=== PATIENT | female | born 1965 | race Caucasian/White ===

== ENCOUNTER 2016-08-15 09:34 | Emergency (ER) | payer MEDICAID ==
[~2016-08-15] VITALS: Ht 154.9 cm; Wt 62.0 kg
[2016-08-15 09:37] VITALS: Ht 154.9 cm; Wt 62.0 kg
[2016-08-15] MEDS ORDERED: NPH10OT LEFT EAR (09:55)
--- NOTE | 2016-08-15 13:58 | ERA ---
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 Patient complains of a left earache starting yesterday. Patient says that the pain is worse when the ear is moved. Patient has not done anything at this time to relieve the pain. Patient rates the pain as a 7 out of 10. Patient denies any discharge, fever, headache, dizziness, decreased hearing, tinnitus, change in taste or difficulty moving extremities/face. ROS All systems reviewed and are negative except as per history of present illness. Medications Home Meds Active Scripts Neomycin/Polymyxin/Hydrocort* (Cortisporin* Otic) 10 Ml Susp, 4 DROP LEFT EAR QID for 7 Days, EA Prov:ALBERT MEDINA PA-C 08/15/16 Allergies Allergies: Coded Allergies: No Known Allergy (Unverified , 08/15/16) PMhx/Soc Medical and Surgical Hx: pt denies Medical Hx, pt denies Surgical Hx Hx Alcohol Use: No Hx Substance Use: No Hx Tobacco Use: No Smoking Status: Never smoker Physical Exam Vitals Vital Signs Date Time Temp Pulse Resp B/P Pulse Ox O2 Delivery O2 Flow Rate FiO2 08/15/16 09:37 99.4 99 18 141/76 97 Physical Exam Const: Well-appearing 51-year-old female in no acute distress. Head: Atraumatic Eyes: Normal Conjunctiva ENT: Normal Nose and Mouth. Patient's left ear was positive for serous yellow fluid with an intact tympanic membrane that was erythematous. The external auditory canal was erythematous and edematous. Neck: Full range of motion..~ No meningismus. Resp: Clear to auscultation bilaterally Cardio: Regular rate and rhythm, no murmurs Abd: Soft, non tender, non distended. Normal bowel sounds Skin: No petechiae or rashes Back: No midline or flank tenderness Ext: No cyanosis, or edema Neur: Awake and alert Psych: Normal Mood and Affect Procedures/MDM Patient is a 51-year-old female who is complaining of left sided ear pain. Patient has never had symptoms like this before and has not taken any medication to relieve the symptoms. Upon physical examination the ear was tender with movement, there is visible yellow serous discharge in the ear canal and an intact tympanic membrane. The ear canal is erythematous. This time most likely diagnosis is otitis externa. Patient does not have diabetes and no tenderness around the posterior ear. Departure Diagnosis: Primary Impression: External otitis of left ear Condition: Stable Patient Instructions: External Ear Infection (Adult) Additional Instructions: Return to emergency department if symptoms worsen. Follow-up with your primary care practitioner in 1-3 days. ALBERT MEDINA PA-C Aug 15, 2016 13:12
== END 2016-08-15 10:14 | disposition home or self-care (01) ==
LOC: FTE 09:34
DX: H60.92 Unspecified otitis externa, left ear (principal)
CPT/HCPCS: 99283

== ENCOUNTER 2016-11-10 19:37 | Emergency (ER) | payer MEDICAID ==
[~2016-11-10] VITALS: Ht 157.5 cm; Wt 62.0 kg
[~2016-11-10 19:37] MED LIST: NPH10OT LEFT EAR
[2016-11-10 19:42] VITALS: Ht 157.5 cm; Wt 62.0 kg
[2016-11-10] MEDS ORDERED: ACETAMINOPHEN 325 MG TAB PO ONE (21:00)
--- NOTE | 2016-11-10 21:42 | RADRPT ---
PROCEDURE: XR Left Foot. CLINICAL INDICATION: Trauma. Left foot pain. TECHNIQUE: Three views. Frontal, lateral, and oblique. COMPARISON: None. FINDINGS: There is an acute oblique fracture through the distal shaft of the fourth metatarsal with mild media l displacement. There is no other fracture and there is no dislocation. The soft tissues are normal. Articular surfaces are intact. There is no lytic or blastic lesion. There is no radiopaque foreign body. IMPRESSION: 1. Acute oblique fracture through the distal shaft of the fourth metatarsal with mild medial displa cement. 2. Otherwise unremarkable images of the left foot. RPTAT: QQ .Adam Rowe MD, MD Date Time Electronically viewed and signed by .Adam Rowe MD, on 11/10/2016 21:42 .R/
--- NOTE | 2016-11-10 21:43 | RADRPT ---
PROCEDURE: XR Left Ankle. CLINICAL INDICATION: Left ankle pain. TECHNIQUE: 3 views. Frontal, lateral, and oblique. COMPARISON: None. FINDINGS: There is an acute oblique fracture through the distal shaft of the fourth metatarsal with mild media l displacement. There is no other fracture and there is no dislocation. The soft tissues are normal. Articular surfaces are intact. There is no lytic or blastic lesion. There is no radiopaque foreign body. IMPRESSION: 1. Acute oblique fracture through the distal shaft of the fourth metatarsal with mild medial displa cement. 2. Otherwise unremarkable images of the left ankle. RPTAT: QQ .Adam Rowe MD, MD Date Time Electronically viewed and signed by .Adam Rowe MD, on 11/10/2016 21:43 .R/
[2016-11-10] MEDS ORDERED: HYDR-906 PO (21:52)
--- NOTE | 2016-11-10 22:13 | ERD ---
ER Documentation Chief Complaint Date/Time DATE: 11/10/16 TIME: 22:10 Chief Complaint LEFT FOOT PAIN, STATES SHE SLIPPED AND HIT FOOT AGAINST ROCK HPI Patient is a 51-year-old female with no past medical history who presents to the ED with left foot pain after sustaining an injury 4 days ago. [place] her foot against a rock. She states that she has difficulty ambulating. Denies fever or chills. Denies radiation of pain. States that her foot is bruised and slightly swollen. She is not taking any medication for her symptoms. Shortness of breath or difficulty breathing. No other complaints. ROS All systems reviewed and are negative except as per history of present illness. Medications Home Meds Active Scripts Hydrocodone/Acetaminophen ([place] 5-325 Tablet) 1 Each Tablet, 1 TAB PO Q6H Y for PAIN, #7 TAB Prov:TIMO APONTE PA-C 11/10/16 Neomycin/Polymyxin/Hydrocort* (Cortisporin* Otic) 10 Ml Susp, 4 DROP LEFT EAR QID for 7 Days, EA Prov:ALBERT MEDINA PA-C 08/15/16 Allergies Allergies: Coded Allergies: No Known Allergy (Unverified , 08/15/16) PMhx/Soc History of Surgery: No Anesthesia Reaction: No Hx Neurological Disorder: No Hx Respiratory Disorders: No Hx Cardiac Disorders: No Hx Psychiatric Problems: No Hx Miscellaneous Medical Probl: No Hx Alcohol Use: No Hx Substance Use: No Hx Tobacco Use: No Smoking Status: Never smoker FmHx Family History: No coronary disease, No diabetes, No other Physical Exam Vitals Vital Signs Date Time Temp Pulse Resp B/P Pulse Ox O2 Delivery O2 Flow Rate FiO2 11/10/16 19:42 97.6 95 18 139/87 95 Physical Exam GENERAL: Well-developed, well-nourished female. Appears in no acute distress. HEAD: Normocephalic, atraumatic. EYES: Pupils are equally reactive bilaterally. EOMs grossly intact. No conjunctival erythema. ENT: Moist mucous membranes. No uvula deviation. No kissing tonsils. No exudates. NECK: Supple. No lymphadenopathy or thyromegaly. No meningismus. negative kernig. negative brudinski. LUNG: Clear to auscultation bilaterally. No rhonchi, wheezing, rales or coarse breath sounds. HEART: Regular rate and rhythm. No murmurs, rubs or gallops. Extremities: Equal pulses bilaterally. No peripheral clubbing, cyanosis or edema. No unilateral leg swelling. Tenderness to dorsal of the left foot with echymosis. No open wounds, deformities or step offs. No laceration. No signs of infection. Pulses intact bilaterally. tenderness to the fourth metatarsal. Sensation intact bilaterally. Negative [place] sign. dorsiflexion, extension, inversion and eversion intact bilaterally. NEUROLOGIC: Alert and oriented. Moving all four extremities. 5/5 strength in all extremities. Normal speech. unSteady gait. SKIN: Normal color. Warm and dry. No rashes or lesions. Capillary refill < 2 seconds Results 24 hrs Current Medications Medications (Trade) Dose Ordered Sig/Alan Route PRN Reason Start Time Stop Time Status Last Admin Dose Admin Acetaminophen (Tylenol Tab) 650 mg ONCE ONCE PO 11/10/16 21:00 11/10/16 21:01 DC 11/10/16 21:34 Procedures/MDM ER COURSE: I kept the patient and/or family informed of laboratory and diagnostic imaging results throughout the emergency room course. IMAGING STUDIES [place] [id number] Radiology Main Line: [phone] DIAGNOSTIC IMAGING REPORT Patient: MICHELET AVALOS : 1965 Age: 51 Sex: F MR #: [id number] DOS: 11/10/162049 Ordering MD: TIMO APONTE PA-C Location: [facility] Room/Bed: PROCEDURE: XR Left Foot. CLINICAL INDICATION: Trauma. Left foot pain. TECHNIQUE: Three views. Frontal, lateral, and oblique. COMPARISON: None. FINDINGS: There is an acute oblique fracture through the distal shaft of the fourth metatarsal with mild medial displacement. There is no other fracture and there is no dislocation. The soft tissues are normal. Articular surfaces are intact. There is no lytic or blastic lesion. There is no radiopaque foreign body. IMPRESSION: 1. Acute oblique fracture through the distal shaft of the fourth metatarsal with mild medial displacement. 2. Otherwise unremarkable images of the left foot. RPTAT: QQ .Adam Rowe MD, MD Date Time Electronically viewed and signed by .Adam Rowe MD, MD on 11/10/2016 21:42 .R/ CC: TIMO APONTE PA-C MEDICAL DECISION MAKING: This is a 51-year-old female who presents with left foot pain after sustaining an injury 4 days ago where she hit her foot against a rock. Vital signs were reviewed. Patient is afebrile. Patient is not hypoxic. Patient is nontoxic or ill-appearing. Patient's x-ray shows a acute oblique fracture through the distal shaft of the fourth metatarsal with mild medial displacement. Patient was given a posterior short leg splint. Neurovascular intact post placement. Low suspicion for dislocation, septic joint, compartment syndrome, osteomyelitis, cellulitis, avascular necrosis, neurological injury, vascular injury, tendon laceration. DISCHARGE: At this time, patient is stable for discharge and outpatient management with no new complaints during the ER course. Patient was sent home with copy of imaging report and [place] for pain and to follow-up with orthopedics. Patient will be discharged home with instructions to recheck for new or worsening symptoms such as fever, nausea, weakness, LOC and to follow up with primary care in the next 1 -2 days. Patient was advised to return to the ER for any new or worsening symptoms. Plan was discussed and patient and/or family understands and agrees. Home instructions were given. Departure Diagnosis: Primary Impression: Metatarsal bone fracture Encounter type: initial encounter Metatarsal bone: fourth Fracture type: closed Fracture alignment: displaced Laterality: left Qualified Code: S92.342A - Closed displaced fracture of fourth metatarsal bone of left foot, initial encounter Condition: Stable Patient Instructions: Fracture, Foot Referrals: [facility] 7 a.m.- 11 p.m. Every Day of the Week NO APPOINTMENT OR AUTHORIZATION NEEDED Additional Instructions: Llame al doctor MAANA y suleman maryan MARIEL PARA DENTRO DE 1-2 SALDIVAR.Dgale a la secretaria que nosotros le instruimos hacer esta mariel.Avise o llame si nolasco condicin se empeora antes de la mariel. Regresa aqui si peor o no mejor. TIMO APONTE PA-C Nov 10, 2016 22:13
[2016-11-10 22:44] VITALS: BP 137/85; RESP 20; TEMP 98
== END 2016-11-10 22:44 | disposition home or self-care (01) ==
LOC: FTE 19:37
DX: S92.342A Displaced fracture of fourth metatarsal bone, left foot, initial encounter for closed fracture (principal); W22.8XXA Striking against or struck by other objects, initial encounter; Y92.832 Beach as the place of occurrence of the external cause
CPT/HCPCS: 29515; 73610; 73630; Z7502

== ENCOUNTER 2016-12-24 11:31 | Emergency (ER) | payer MEDICAID ==
[~2016-12-24] VITALS: Ht 160 cm; Wt 61.0 kg
[~2016-12-24 11:31] MED LIST changes: +HYDR-906 PO
[2016-12-24 11:37] VITALS: Ht 160 cm; Wt 61.0 kg
[2016-12-24 12:31] LABS: BASOPHILS % 0.5 % (0.0-2.0); EOSINOPHILS # 0.1 10^3/ul (0.0-0.5); EOSINOPHILS % 0.8 % (0.0-7.0); HEMATOCRIT 39.1 % (37.0-47.0); HEMOGLOBIN 13.1 g/dl (12.0-16.0); LYMPHOCYTES # 1.8 10^3/ul (0.8-2.9); LYMPHOCYTES % 27.5 % (15.0-51.0); MEAN CORPUSCULAR HEMOGLOBIN 31.2 pg (29.0-33.0); MEAN CORPUSCULAR HGB CONC 33.5 g/dl (32.0-37.0); MEAN CORPUSCULAR VOLUME 93.1 fl (82.0-101.0); MEAN PLATELET VOLUME 10.1 fl (7.4-10.4); MONOCYTE # 0.3 10^3/ul (0.3-0.9); MONOCYTES % 4.3 % (0.0-11.0); NEUTROPHILS % 66.4 % (39.0-77.0); PLATELET COUNT 299 10^3/UL (140-415); RED CELL DISTRIBUTION WIDTH 12.9 % (11.5-14.5); WHITE BLOOD COUNT 6.5 10^3/ul (4.8-10.8)
[2016-12-24 12:46] LABS: INR 0.93; PROTIME 12.5 Sec (12.2-14.2)
[2016-12-24 12:47] LABS: PARTIAL THROMBOPLASTIN TIME 29.9 Sec (25.0-35.0)
[2016-12-24 12:53] LABS: ANION GAP 15 (8-16); BLOOD UREA NITROGEN 11 mg/dl (7-20); CALCIUM 10.2 mg/dl (8.4-10.2); CARBON DIOXIDE 27 mmol/L (21-31); CHLORIDE 104 mmol/L (97-110); CREATININE 0.64 mg/dl (0.44-1.00); GLUCOSE 114 mg/dl (70-220); POTASSIUM 3.6 mmol/L (3.5-5.1); SODIUM 142 mmol/L (135-144)
--- NOTE | 2016-12-24 12:54 | RADRPT ---
PROCEDURE: XR Chest. CLINICAL INDICATION: Chest pain. TECHNIQUE: Single frontal view of the chest was obtained. COMPARISON: None FINDINGS: The soft tissues are normal. There are degenerative osteophytes in the thoracic spine. The heart, cardiomediastinal silhouette and hilar structures are normal. The pulmonary vasculature is normal. There is a left-sided aorta. The lungs are clear. The costophrenic angles are normal. IMPRESSION: 1. There is no evidence of active cardiopulmonary disease. RPTAT:AAJJ Physician Quinn Date Time Electronically viewed and signed by Physician Quinn on 12/24/2016 12:54 ZEB/
[2016-12-24 13:04] LABS: TROPONIN-I < 0.012 ng/ml (0.00-0.12)
[2016-12-24] MEDS ORDERED: IBUP-1542 PO (13:20)
[2016-12-24] MEDS ORDERED: TRAM50TA2 PO (13:20)
--- NOTE | 2016-12-24 13:26 | ERD ---
ER Documentation Chief Complaint Date/Time DATE: 12/24/16 TIME: 13:23 Chief Complaint Complains of left leg pain x 3 days HPI Patient is a 51-year-old female who presents complaining of left and right lateral rib cage pain that she has had for about 3 days. She denies any trauma. She is also complaining of neck pain. She takes Tylenol but it only helps temporarily. She states her symptoms are worse at night. She denies any shortness of breath or palpitations. Sweats or unplanned weight loss. ROS All systems reviewed and are negative except as per history of present illness. Medications Home Meds Active Scripts Tramadol HCl (Tramadol HCl) 50 Mg Tablet, 50 MG PO Q4 Y for PAIN, #20 TAB Prov:SEBASTIEN RODRIGUEZ PA-C 12/24/16 Ibuprofen* (Motrin*) 600 Mg Tab, 600 MG PO Q6, #30 TAB Prov:SEBASTIEN RODRIGUEZ PA-C 12/24/16 Hydrocodone/Acetaminophen ([place] 5-325 Tablet) 1 Each Tablet, 1 TAB PO Q6H Y for PAIN, #7 TAB Prov:TIMO APONTE PA-C 11/10/16 Neomycin/Polymyxin/Hydrocort* (Cortisporin* Otic) 10 Ml Susp, 4 DROP LEFT EAR QID for 7 Days, EA Prov:ALBERT MEDINA PA-C 08/15/16 Allergies Allergies: Coded Allergies: No Known Allergy (Unverified , 08/15/16) PMhx/Soc History of Surgery: No Anesthesia Reaction: No Hx Neurological Disorder: No Hx Respiratory Disorders: No Hx Cardiac Disorders: No Hx Psychiatric Problems: No Hx Miscellaneous Medical Probl: No Hx Alcohol Use: No Hx Substance Use: No Hx Tobacco Use: No FmHx Family History: No diabetes Physical Exam Vitals Vital Signs Date Time Temp Pulse Resp B/P Pulse Ox O2 Delivery O2 Flow Rate FiO2 12/24/16 11:37 98.7 96 20 125/73 96 Physical Exam INITIAL VITAL SIGNS: Reviewed by me GENERAL: Awake, alert and oriented x 4, well appearing, nontoxic, speaking in full sentences. No acute distress HEAD: Atraumatic EYES: EOMI. PERRL. NECK: Supple. No masses. Full range of motion. No meningismus. No midline tenderness. RESPIRATORY: Clear to auscultation bilaterally. Symmetric chest wall rise. No wheezing or rales. No accessory muscle use. CV: Regular rate and rhythm. No murmurs, rubs, or gallops. ABDOMEN: Soft, non-distended. Nontender. Negative [place]. Negative McBurneys point tenderness. No CVA tenderness bilaterally. No guarding. No rebound. Result Diagram: 12/24/16 1210 12/24/16 1210 Results 24 hrs Laboratory Tests Test 12/24/16 12:10 White Blood Count 6.510^3/ul Red Blood Count 4.2010^6/ul Hemoglobin 13.1g/dl Hematocrit 39.1% Mean Corpuscular Volume 93.1fl Mean Corpuscular Hemoglobin 31.2pg Mean Corpuscular Hemoglobin Concent 33.5g/dl Red Cell Distribution Width 12.9% Platelet Count 14191^3/UL Mean Platelet Volume 10.1fl Neutrophils % 66.4% Lymphocytes % 27.5% Monocytes % 4.3% Eosinophils % 0.8% Basophils % 0.5% Nucleated Red Blood Cells % 0.0/100WBC Neutrophils # (Manual) 410^3/ul Lymphocytes # 1.810^3/ul Monocytes # 0.310^3/ul Eosinophils # 0.110^3/ul Basophils # 0.010^3/ul Nucleated Red Blood Cells # 0.010^3/ul Prothrombin Time 12.5Sec Prothrombin Time Ratio 1.0 INR International Normalized Ratio 0.93 Activated Partial Thromboplast Time 29.9Sec Sodium Level 142mmol/L Potassium Level 3.6mmol/L Chloride Level 104mmol/L Carbon Dioxide Level 27mmol/L Anion Gap 15 Blood Urea Nitrogen 11mg/dl Creatinine 0.64mg/dl Glucose Level 114mg/dl Calcium Level 10.2mg/dl Troponin I < 0.012ng/ml Procedures/MDM 51-year-old female presents with bilateral lateral rib cage pain. Patients is alert, oriented, well appearing, and in no distress with normal vital signs. There is no fever, tachycardia, or tachypnea. She is well-appearing in no distress. Laboratory analysis shows no evidence of acute emergent abnormality. No evidence of significant leukocytosis suggesting systemic infection or severe anemia. No evidence of acute renal or liver failure, no evidence of severe alkalosis or acidosis. Troponin also negative. Chest x-ray unremarkable. EKG also normal sinus rhythm with no evidence of ST elevation or acute ischemic changes. Patient's symptoms are most likely musculoskeletal. She was given copies of all of her labs and x-ray reports she can follow primary care as well as prescriptions for Motrin and tramadol. Patient counseled regarding my diagnostic impression and care plan. Prior to discharge all questions answered. Pt agrees with treatment plan and understands strict return precautions. Pt is instructed to follow up with primary care provider within 24-48 hours. Precautionary instructions provided including instructions to return to the ER if not improving or for any worsening or changing symptoms or concerns. Departure Diagnosis: Primary Impression: Myalgia Condition: Stable Patient Instructions: Myalgias Additional Instructions: Llame al doctor MAANA y suleman maryan MARIEL PARA DENTRO DE 1-2 SALDIVAR.Dgale a la secretaria que nosotros le instruimos hacer esta mariel.Avise o llame si nolasco condicin se empeora antes de la mariel. Regresa aqui si peor o no mejor. SEBASTIEN RODRIGUEZ PA-C Dec 24, 2016 13:26
== END 2016-12-24 13:48 | disposition home or self-care (01) ==
LOC: FTE 11:31
DX: M79.1 Myalgia (principal)
CPT/HCPCS: 36415; 71010; 80048; 84484; 85025; 85610; 85730; 93005; Z7502

== ENCOUNTER 2017-01-16 17:29 | Emergency (ER) | payer MEDICAID ==
[~2017-01-16] VITALS: Ht 160 cm; Wt 62.5 kg
[~2017-01-16 17:29] MED LIST changes: +IBUP-1542 PO; +TRAM50TA2 PO
[2017-01-16 17:40] VITALS: Ht 160 cm; Wt 62.5 kg
[2017-01-16] MEDS ORDERED: HYDROCODONE/APAP (5/325) TAB PO ONE (21:00)
--- NOTE | 2017-01-16 21:10 | ERD ---
ER Documentation Chief Complaint Date/Time DATE: 01/16/17 TIME: 21:08 Chief Complaint right foot pain cont from an injury 2 months ago. HPI 51-year-old female presents here in emergency department for complaints of right foot pain, patient had an injury, had the fourth metatarsal bone fracture 2 months ago, was seen 3 times at orthopedic doctor, patient's currently on the boot, patient states that she continues to have the pain throbbing pain, 6/10 scale, is worse than touching the area and movement. Patient denies any numbness or tingling. Patient denies any fever or chills. ROS All systems reviewed and are negative except as per history of present illness. Medications Home Meds Active Scripts Tramadol HCl (Tramadol HCl) 50 Mg Tablet, 50 MG PO Q4 Y for PAIN, #20 TAB Prov:SEBASTIEN RODRIGUEZ PA-C 12/24/16 Ibuprofen* (Motrin*) 600 Mg Tab, 600 MG PO Q6, #30 TAB Prov:SEBASTIEN RODRIGUEZ PA-C 12/24/16 Hydrocodone/Acetaminophen ([place] 5-325 Tablet) 1 Each Tablet, 1 TAB PO Q6H Y for PAIN, #7 TAB Prov:TIMO APONTE PA-C 11/10/16 Neomycin/Polymyxin/Hydrocort* (Cortisporin* Otic) 10 Ml Susp, 4 DROP LEFT EAR QID for 7 Days, EA Prov:ALBERT MEDINA PA-C 08/15/16 Allergies Allergies: Coded Allergies: No Known Allergy (Unverified , 08/15/16) PMhx/Soc Medical and Surgical Hx: pt denies Medical Hx, pt denies Surgical Hx History of Surgery: No Anesthesia Reaction: No Hx Neurological Disorder: No Hx Respiratory Disorders: No Hx Cardiac Disorders: No Hx Psychiatric Problems: No Hx Miscellaneous Medical Probl: No Hx Alcohol Use: No Hx Substance Use: No Hx Tobacco Use: No Smoking Status: Never smoker FmHx Family History: No coronary disease, No diabetes, No other Physical Exam Vitals Vital Signs Date Time Temp Pulse Resp B/P Pulse Ox O2 Delivery O2 Flow Rate FiO2 01/16/17 17:40 98.2 91 18 159/88 97 Physical Exam GENERAL: The patient is well developed and appropriate for usual state of health, in no apparent distress. CHEST: Clear to auscultation bilaterally. There are no rales, wheezes or rhonchi. HEART: Regular rate and rhythm. No murmurs, clicks, rubs or gallops. No S3 or S4. ABDOMEN: Soft, nontender and nondistended. Good bowel sounds. No rebound or guarding. No gross peritonitis. No gross organomegaly or masses. No Santamaria sign or McBurney point tenderness. BACK: No midline or flank tenderness. EXTREMITIES:Tenderness on palpation on the dorsal aspect of the left foot. No swelling noted, no erythema noted. Equal pulses bilaterally. There is no peripheral clubbing, cyanosis or edema. No focal swelling or erythema. Full range of motion. Grossly neurovascularly intact. NEURO: Alert and oriented. Cranial nerves 2-12 intact. Motor strength in all 4 extremities with 5/5 strength. Sensation grossly intact. Normal speech and gait. SKIN: There is no apparent rash or petechia. The skin is warm and dry. HEMATOLOGIC AND LYMPHATIC: There is no evidence of excessive bruising or lymphedema. No gross cervical, axillary, or inguinal lymphadenopathy. Results 24 hrs Current Medications Medications (Trade) Dose Ordered Sig/Alan Route PRN Reason Start Time Stop Time Status Last Admin Dose Admin Acetaminophen/ Hydrocodone Bitart ([place] (5/325)) 1 tab ONCE ONCE PO 01/16/17 21:00 01/16/17 21:02 DC 01/16/17 21:35 Patient was given medication for pain here in emergency department, after treatment, patient verbalized feeling much better. Patient's pain is improved. PROCEDURE: XR Left Foot CLINICAL INDICATION: Pain TECHNIQUE: AP, oblique, and lateral radiographs were submitted. COMPARISON: 11/10/2016 FINDINGS: Osseous structures: There has been stable positioning alignment of the oblique fracture involving the distal left fourth metatarsal neck with persistent medial displacement of the distal fragment and with only a minimal increase in callus deposition evident. The remaining osseous elements appear extremely osteoporotic but intact. Joint spaces: are well maintained, with no significant spurring, erosion or joint effusion evident. Soft tissues: appear unremarkable. IMPRESSION: 1. Stable positioning alignment of the fracture of the distal left fourth metatarsal neck with only a minimal increase in callus formation evident. 2. The remaining osseous elements are intact but extremely osteoporotic. Physician Mely Date Time Electronically viewed and signed by Physician Mely on 01/16/2017 21:57 RH/ CC: JENNIFER SANCHEZ NP Procedures/MDM Medical Decision Making: Patient's pain is most likely consistent with a chronic pain from the previous injury. There is no suspicion for neurovascular compromise. Patient has intact sensation and circulation of the affected extremity. There is low suspicion for septic arthritis. Patient does not have any fever. Radiology exams of the affected area show a stable healing fracture. Disposition: Home. Patient is given prescription for ibuprofen for pain, norco for severe pain. Patient was advised to elevate the affected area and apply ice on affected area. Patient was advised that if symptoms are worse, numbness, tingling, high fever, unable to move joint, worsening symptoms, to return to emergency department immediately. Otherwise, patient is advised to follow up with the primary care doctor in 5-7 days for reevaluation of symptoms.Continue use of boot Departure Diagnosis: Primary Impression: Foot pain Laterality: left Qualified Code: M79.672 - Left foot pain Condition: Stable Patient Instructions: Fracture, Foot Additional Instructions: Patient is given prescription for ibuprofen for pain, norco for severe pain. Patient was advised to elevate the affected area and apply ice on affected area. Patient was advised that if symptoms are worse, numbness, tingling, high fever, unable to move joint, worsening symptoms, to return to emergency department immediately. Otherwise, patient is advised to follow up with the primary care doctor in 5-7 days for reevaluation of symptoms. COntinue use of boot JENNIFER SANCHEZ NP Jan 16, 2017 21:10
--- NOTE | 2017-01-16 21:58 | RADRPT ---
PROCEDURE: XR Left Foot CLINICAL INDICATION: Pain TECHNIQUE: AP, oblique, and lateral radiographs were submitted. COMPARISON: 11/10/2016 FINDINGS: Osseous structures: There has been stable positioning alignment of the oblique fracture involving th e distal left fourth metatarsal neck with persistent medial displacement of the distal fragment and with only a minimal increase in callus deposition evident. The remaining osseous elements appear ext remely osteoporotic but intact. Joint spaces: are well maintained, with no significant spurring, erosion or joint effusion evident. Soft tissues: appear unremarkable. IMPRESSION: 1. Stable positioning alignment of the fracture of the distal left fourth metatarsal neck with only a minimal increase in callus formation evident. 2. The remaining osseous elements are intact but extremely osteoporotic. Physician Mely Date Time Electronically viewed and signed by Physician Mely on 01/16/2017 21:57 /
[2017-01-16] MEDS ORDERED: IBUP-1542 PO (22:10)
[2017-01-16] MEDS ORDERED: HYDR-906 PO (22:10)
[2017-01-16 22:51] VITALS: BP 124/87; PULSE 67; RESP 16
== END 2017-01-16 22:52 | disposition home or self-care (01) ==
LOC: FTE 17:29
DX: M79.672 Pain in left foot (principal)
CPT/HCPCS: 73630; Z7502; Z7610

== ENCOUNTER 2017-03-17 11:04 | Emergency (ER) | payer MEDICAID ==
[~2017-03-17] VITALS: Ht 157.5 cm; Wt 62.0 kg
[2017-03-17 11:05] VITALS: Ht 157.5 cm; Wt 62.0 kg
[2017-03-17] MEDS ORDERED: HYDROCODONE/APAP (5/325) TAB PO ONE (11:30)
--- NOTE | 2017-03-17 11:55 | ERD ---
ER Documentation Chief Complaint Chief Complaint Complain sof right foot and ankle pain x 3 days HPI This is a 51-year-old female presenting to emergency department for left foot and ankle pain 3 months. Patient states she tripped and fell about 3 months ago. Patient has been unable to bear weight. Cannot extend or flex left foot. No numbness or tingling. No loss of sensation. No laceration or ecchymosis. ROS All systems reviewed and are negative except as per history of present illness. Medications Home Meds Active Scripts Ibuprofen* (Motrin*) 600 Mg Tab, 600 MG PO Q6, #30 TAB Prov:TAYLOR OSBORN NP 03/17/17 Hydrocodone/Acetaminophen ([place] 5-325 Tablet) 1 Each Tablet, 1 TAB PO Q6H Y for PAIN, #7 TAB Prov:TAYLOR OSBORN NP 03/17/17 Hydrocodone/Acetaminophen ([place] 5-325 Tablet) 1 Each Tablet, 1 TAB PO Q6H Y for SEVERE PAIN LEVEL 7-10, #20 TAB Prov:JENNIFER SANCHEZ NP 01/16/17 Ibuprofen* (Motrin*) 600 Mg Tab, 600 MG PO Q6H Y for PAIN AND OR ELEVATED TEMP, #30 TAB Prov:JENNIFER SANCHEZ NP 01/16/17 Tramadol HCl (Tramadol HCl) 50 Mg Tablet, 50 MG PO Q4 Y for PAIN, #20 TAB Prov:SEBASTIEN RODRIGUEZ PA-C 12/24/16 Ibuprofen* (Motrin*) 600 Mg Tab, 600 MG PO Q6, #30 TAB Prov:SEBASTIEN RODRIGUEZ PA-C 12/24/16 Hydrocodone/Acetaminophen ([place] 5-325 Tablet) 1 Each Tablet, 1 TAB PO Q6H Y for PAIN, #7 TAB Prov:TIMO APONTE PA-C 11/10/16 Neomycin/Polymyxin/Hydrocort* (Cortisporin* Otic) 10 Ml Susp, 4 DROP LEFT EAR QID for 7 Days, EA Prov:ALBERT MEDINA PA-C 08/15/16 Allergies Allergies: Coded Allergies: No Known Allergy (Unverified , 08/15/16) PMhx/Soc History of Surgery: No Anesthesia Reaction: No Hx Neurological Disorder: No Hx Respiratory Disorders: No Hx Cardiac Disorders: No Hx Psychiatric Problems: No Hx Miscellaneous Medical Probl: No Hx Alcohol Use: No Hx Substance Use: No Hx Tobacco Use: No Physical Exam Vitals Vital Signs Date Time Temp Pulse Resp B/P Pulse Ox O2 Delivery O2 Flow Rate FiO2 03/17/17 11:05 98.7 87 20 157/79 98 Physical Exam Const: No acute distress, alert Head: Atraumatic Eyes: Normal Conjunctiva ENT: Normal External Ears, Nose and Mouth. Neck: Full range of motion..~ No meningismus. Resp: Clear to auscultation bilaterally Cardio: Regular rate and rhythm, no murmurs Abd: Soft, non tender, non distended. Normal bowel sounds Skin: No petechiae or rashes Back: No midline or flank tenderness Ext: No cyanosis, or edema. Unable to plantarflex or dorsiflex. Positive kimbrough test. slight plantar flexion of left ankle with squeezing of calf compared to full plantar flexion of ankle with squeezing of right ankle. Neur: Awake and alert Psych: Normal Mood and Affect Results 24 hrs Current Medications Medications (Trade) Dose Ordered Sig/Alan Route PRN Reason Start Time Stop Time Status Last Admin Dose Admin Acetaminophen/ Hydrocodone Bitart ([place] (5/325)) 1 tab ONCE ONCE PO 03/17/17 11:30 03/17/17 11:31 DC 03/17/17 11:38 Procedures/MDM DIAGNOSTIC IMAGING REPORT Patient: SHIRLENE AVALOS : 1965 Age: 51 Sex: F MR #: [id number] DOS: 03/17/17 1127 Ordering MD: TAYLOR BURGESS NP Location: [facility] Room/Bed: PROCEDURE: XR left Ankle. CLINICAL INDICATION: Pain post fall 3 months ago TECHNIQUE: Three views of the left ankle were performed. COMPARISON: 11/10/2016 FINDINGS: There is no acute fracture or dislocation. There is diffuse demineralization of the bones. Ankle mortise is intact. Joint spaces are maintained. Soft tissues are unremarkable. RPTAT: QQ IMPRESSION: Diffuse demineralization of the bones which may be from disuse osteopenia. No acute fracture. DIAGNOSTIC IMAGING REPORT Patient: SHIRLENE AVALOS : 1965 Age: 51 Sex: F MR #: [id number] DOS: 03/17/17 1127 Ordering MD: TAYLOR BURGESS NP Location: [facility] Room/Bed: PROCEDURE: XR Left foot. CLINICAL INDICATION: Pain post fall 3 months ago TECHNIQUE: Three views of the left foot were obtained. COMPARISON: Several prior studies, most recent on 01/16/2017 FINDINGS: There is no acute fracture or dislocation. There is a healing fracture of the distal fourth metatarsal with mild deformity and increased bony bridging. There is diffuse demineralization of the bones from disuse osteopenia. There is minimal osseous spurring within the first metatarsophalangeal joint. There is mild joint space narrowing of the fifth metatarsophalangeal joint. The metatarsals are in alignment with the cuneiforms. The soft tissues are unremarkable. RPTAT: QQ IMPRESSION: 1. Healing fracture of the distal fourth metatarsal. 2. Diffuse disuse osteopenia. MDM: This is a 51-year-old female presenting to emergency department for right foot and ankle pain 3 months. Patient had positive Kimbrough test on physical exam. Unable to plantarflex or dorsiflex left foot. No swelling. No ecchymosis. Consulted Dr. Holguin who also examined patient. XR left ankle and foot ordered. X-ray left ankle reviewed by radiologist as diffuse demineralization of the bones which may be from diffuse osteopenia. No acute fracture. X-ray left foot reviewed by radiologist as healing fracture of the distal fourth metatarsal. Diffuse osteopenia. Patient placed in posterior short leg splint. Remains neurovascularly intact. Discussed findings at length with patient using chemistry technician. Because that she needs to follow- up with orthopedic physician in the next 24-48 hours. Resources provided. Patient verbalizes understanding. Diagnosis is incomplete Achilles tendon rupture, left and Healing distal fourth metatarsal fracture. Patient is appropriate for outpatient management only given prescription for ibuprofen and [place]. Instructed patient to follow-up with orthopedic physician. Resources provided. Return to ED for any high fever, chest pain, difficulty breathing, shortness breath, wheezing, vomiting, diarrhea, abdominal pain or any new or worsening symptoms. Patient verbalizes understanding. All questions answered at discharge. Kazakh translation used during this encounter. Disclaimer: Inadvertent spelling and grammatical errors are likely due to EHR/ dictation software use and do not reflect on the overall quality of patient care. Also, please note that the electronic time recorded on this note does not necessarily reflect the actual time of the patient encounter. Departure Diagnosis: Primary Impression: Achilles rupture, left Encounter type: subsequent encounter Qualified Code: S86.012D - Rupture of left Achilles tendon, subsequent encounter Additional Impression: Metatarsal fracture Encounter type: subsequent encounter Metatarsal bone: fourth Fracture type : closed Fracture alignment: nondisplaced Laterality: left Fracture healing: with routine healing Qualified Code: S92.345D - Closed nondisplaced fracture of fourth metatarsal bone of left foot with routine healing, subsequent encounter Condition: Stable TAYLOR OSBORN NP Mar 17, 2017 11:55
--- NOTE | 2017-03-17 12:16 | RADRPT ---
PROCEDURE: XR left Ankle. CLINICAL INDICATION: Pain post fall 3 months ago TECHNIQUE: Three views of the left ankle were performed. COMPARISON: 11/10/2016 FINDINGS: There is no acute fracture or dislocation. There is diffuse demineralization of the bones. Ankle mor tise is intact. Joint spaces are maintained. Soft tissues are unremarkable. RPTAT: QQ IMPRESSION: Diffuse demineralization of the bones which may be from disuse osteopenia. No acute fracture. .Leni Portillo MD, Date Time Electronically viewed and signed by .Leni Portillo MD, on 03/17/2017 12:16 .T/
--- NOTE | 2017-03-17 12:18 | RADRPT ---
PROCEDURE: XR Left foot. CLINICAL INDICATION: Pain post fall 3 months ago TECHNIQUE: Three views of the left foot were obtained. COMPARISON: Several prior studies, most recent on 01/16/2017 FINDINGS: There is no acute fracture or dislocation. There is a healing fracture of the distal fourth metatars al with mild deformity and increased bony bridging. There is diffuse demineralization of the bones f rom disuse osteopenia. There is minimal osseous spurring within the first metatarsophalangeal joint. There is mild joint space narrowing of the fifth metatarsophalangeal joint. The metatarsals are in alignment with the cuneiforms. The soft tissues are unremarkable. RPTAT: QQ IMPRESSION: 1. Healing fracture of the distal fourth metatarsal. 2. Diffuse disuse osteopenia. .Leni Portillo MD, Date Time Electronically viewed and signed by .Leni Portillo MD, on 03/17/2017 12:18 .T/
[2017-03-17] MEDS ORDERED: IBUP-1542 PO (12:29)
[2017-03-17] MEDS ORDERED: HYDR-906 PO (12:29)
== END 2017-03-17 13:05 | disposition home or self-care (01) ==
LOC: FTE 11:04
DX: S92.345D Nondisplaced fracture of fourth metatarsal bone, left foot, subsequent encounter for fracture with routine healing (principal); S86.012D Strain of left Achilles tendon, subsequent encounter; W01.0XXD Fall on same level from slipping, tripping and stumbling without subsequent striking against object, subsequent encounter
CPT/HCPCS: 29515; 73610; 73630; Z7502; Z7610

== ENCOUNTER 2017-05-24 08:06 | Emergency (ER) | END 2017-05-24 09:20 | disposition home or self-care (01) ==

== ENCOUNTER 2017-05-25 23:50 | Emergency (ER) | END 2017-05-26 06:38 | disposition home or self-care (01) ==

== ENCOUNTER 2017-10-27 18:20 | Emergency (ER) | END 2017-10-28 01:00 | disposition home or self-care (01) ==